=== PATIENT | male | born 1985 | race Caucasian/White ===

== ENCOUNTER 2018-09-03 10:28 | Emergency (ER) | payer OTHER ==
[~2018-09-03] VITALS: Ht 180.3 cm; Wt 88.5 kg
== END 2018-09-03 12:51 | disposition home or self-care (01) ==
LOC: ER 10:28
DX: S80.01XA Contusion of right knee, initial encounter (principal); W20.8XXA Other cause of strike by thrown, projected or falling object, initial encounter; Y93.89 Activity, other specified; Y92.520 Airport as the place of occurrence of the external cause; Y99.8 Other external cause status

== ENCOUNTER 2018-09-07 11:52 | Emergency (ER) | payer OTHER ==
[~2018-09-07] VITALS: Ht 180.3 cm; Wt 88.5 kg
== END 2018-09-07 14:09 | disposition home or self-care (01) ==
LOC: ER 11:52
DX: S80.01XS Contusion of right knee, sequela (principal); G89.11 Acute pain due to trauma; W20.8XXS Other cause of strike by thrown, projected or falling object, sequela